=== PATIENT | male | born 1940 | race Caucasian/White ===

== ENCOUNTER 2018-08-29 10:05 | Emergency (ER) | payer OTHER ==
--- NOTE | 2018-08-29 10:35 | EDPHY ---
H & P Stated Complaint: uncontrolled shaking while holding coffee. Concerned it is heart Time Seen by Provider: 08/29/18 10:35 - Personal History Current Tetanus Diphtheria and Acellular Pertussis (TDAP): Yes Tetanus Vaccine Date: 2010 - Medical/Surgical History Hx Asthma: No Hx Chronic Respiratory Disease: No Hx Diabetes: Yes Hx Cardiac Disease: Yes Hx Renal Disease: No Hx Cirrhosis: No Hx Alcoholism: No Hx HIV/AIDS: No Hx Splenectomy or Spleen Trauma: No Other PMH: cardiac stents/htn - Social History Smoking Status: Former smoker Constitutional: Initial Vital Signs Temperature (C) 36.6 C 08/29/18 10:06 Heart Rate 95 08/29/18 10:06 Respiratory Rate 18 08/29/18 10:06 Blood Pressure 154/92 H 08/29/18 10:06 O2 Sat (%) 92 08/29/18 10:06 O2 Delivery Mode Room Air Allergies/Adverse Reactions: No Known Allergies Allergy (Verified 08/29/18 10:10) Home Medications: Medication Instructions Recorded FLUoxetine [Prozac 20 MG (*)] 20 mg PO DAILY 09/30/10 amLODIPine BESYLATE [Norvasc 10 mg 10 mg PO DAILY 09/30/10 (*)] Aspirin EC [Aspirin EC 81 mg (*)] 81 mg PO DAILY 05/07/15 Glimepiride [Amaryl 2 MG (*)] 2 mg PO DAILY@18 05/07/15 Losartan Potassium [Cozaar 50 mg 50 mg PO DAILY 05/07/15 (*)] Nitroglycerin [Nitrostat 0.4 mg 0.4 mg SL PRN PRN 05/07/15 (*)] Vitamin B Complex [B Complex] 1 each PO DAILY 05/07/15 metFORMIN HCL [Metformin HCl ER] 1,000 mg PO BIDMEAL 05/07/15 Atorvastatin Calcium [Lipitor 40 80 mg PO DAILY #30 tab 05/08/15 mg (*)] Medical Decision Making - Diagnostics Imaging Results: Imaging Impressions Chest X-Ray 08/29/18 10:55 Impression: No evidence of pneumonia or overt heart failure/fluid overload. Imaging: I viewed and interpreted images myself ED Course/Re-evaluation: CHIEF COMPLAINT: Shaking, shoulder blade pain HISTORY OF PRESENT ILLNESS: The patient is an anticoagulated (Plavix and baby Aspirin) 78 y/o male with a history of cardiac stents x 9 and hypertension complaining of uncontrollable shaking this morning. While at [employer] he was returning to his table after getting coffee when he had full body shaking. After he had the episode of shaking he developed a pain under his shoulder blade. This pain is similar to symptoms he had prior to having stents placed. He reports that the has had stents placed "every 3 years". He typically does not feel shaky prior to needing the stents. The shakiness has increased over the last 2 years. No fever , headache, chest pain, shortness of breath, abdominal pain, urinary or bowel complaints, numbness. REVIEW OF SYSTEMS: A comprehensive 10 system review of systems is otherwise negative aside from elements mentioned in the history of present illness and medical decision making. PHYSICAL EXAM: HR, BP, O2 Sat, RR. Temp noted General Appearance: Alert, well hydrated, appropriate, and non-toxic appearing. Head: Atraumatic without scalp tenderness or obvious injury Eyes: Pupils equal, round, reactive to light and accommodation, EOMI, no trauma , no injection. Ears: Clear bilaterally, no perforation, normal landmarks Nose: Atraumatic, no rhinorrhea, clear. Throat: There is no erythema or exudates, no lesions, normal tonsils, mucus membranes moist. Neck: Supple, 2+ carotid upstroke, nontender, no lymphadenopathy. Respiratory: No retractions, no distress, no wheezes, and no accessory muscle use. Lungs are clear to auscultation bilaterally. Cardiovascular: Regular rate and rhythm, no murmurs, rubs, or gallops. Bilateral carotid, radial, dorsalis pedis, and posterior tibial pulses intact. Good capillary refill all extremities. Gastrointestinal: Abdomen is soft, nontender, non-distended, no masses, no rebound, no guarding, no peritoneal signs. Musculoskeletal: Normal active ROM of all extremities, atraumatic. Neurological: Alert, appropriate, and interactive. The patient has normal DTRs and non-focal cranial nerves, motor, sensory, and cerebellar exam. Skin: No rashes, good turgor, no nodules on palpation. Past medical history: Hypertension Past surgical history: Cardiac stents x 9 Family history: Denies Social history: Friend at bedside, lives in [place], retired DIAGNOSTICS/PROCEDURES/CRITICAL CARE TIME: EKG: The 12 lead EKG was interpreted by myself as sinus rhythm with a rate of 88 , no ischemia, normal intervals. See hard copy and/or "tracemaster" electronic copy for interpretation. Chest x-ray: No evidence of pneumonia or overt heart failure/fluid overload. DIFFERENTIAL DIAGNOSIS: The differential diagnosis for the patient's neurologic symptoms included but was not limited to peripheral causes, central causes including CVA, TIA, electrolyte abnormalities and dehydration, cardiogenic causes, atypical causes like migraine syndrome. MEDICAL DECISION MAKING: The patient is an anticoagulated (Plavix and baby Aspirin) 78 y/o male with a history of cardiac stents x 9 and hypertension complaining of uncontrollable shaking this morning followed by a pain under his shoulder. He has a normal physical exam. Labs, EKG, and chest x-ray ordered. 1017: I reviewed patient's EKG as sinus rhythm with a rate of 88, no ischemia, normal intervals. 1052: Patients's troponin is normal; additional lab and imaging studies still pending. 1143: I reviewed patient's chest x-ray which does not reveal any acute findings. 1146: Reassessed patient and discussed laboratory and imaging findings. I have offered him admission for further observation and evaluation. He is politely declining the admission offer and would like to follow up with his regional driver , Dr. Liu, as an outpatient. Return precautions provided; patient is comfortable with this plan. - Data Points Laboratory Results: 08/29/18 08/29/18 10:49 10:27 POC Hgb 16.0 gm/dL gm/dL (13.7-17.5) POC Hct 47 % % (40-51) POC Sodium 141 mEq/L mEq/L (135-145) POC Potassium 4.3 mEq/L mEq/L (3.3-5.0) POC Chloride 102 mEq/L mEq/L (97-110) POC Total CO2 24 mEq/L mEq/L (22-31) POC BUN 20 mg/dL mg/dL (7-23) POC Creatinine 1.1 mg/dL mg/dL (0.7-1.3) POC Glucose 173 mg/dL H mg/dL (70-100) POC Troponin I 0.00 ng/mL ng/mL (0.00-0.08) Point of Care Test Results: Chemistry 08/29/18 08/29/18 10:49 10:27 POC Sodium 141 mEq/L mEq/L (135-145) POC Potassium 4.3 mEq/L mEq/L (3.3-5.0) POC Chloride 102 mEq/L mEq/L (97-110) POC Total CO2 24 mEq/L mEq/L (22-31) POC BUN 20 mg/dL mg/dL (7-23) POC Creatinine 1.1 mg/dL mg/dL (0.7-1.3) POC Glucose 173 mg/dL H mg/dL (70-100) POC Troponin I 0.00 ng/mL ng/mL (0.00-0.08) ISTAT H&H 08/29/18 10:49 POC Hgb 16.0 gm/dL gm/dL (13.7-17.5) POC Hct 47 % % (40-51) Departure - Departure Disposition: Home, Routine, Self-Care Clinical Impression: Shaking Shoulder pain Qualifiers: Chronicity: acute Laterality: unspecified laterality Qualified Code(s): M25.519 - Pain in unspecified shoulder Condition: Good Instructions: Tremors (ED), Shoulder Pain (ED) Additional Instructions: 1. Follow-up with your primary doctor within 72 hours. 2. Return to the Emergency Department for fever, chest pain, shortness of breath , increasing pain or other worsening of condition. 3. Follow up with a regional driver for further testing, as soon as possible, within one week. We would be happy to reevaluate you and observe you in the hospital at any time. Referrals: Jitendra Ortiz MD [Primary Care Provider] - As per Instructions Satinder Liu MD [Medical Doctor] - As per Instructions Report Scribed for: Nolberto Calderon Report Scribed by: Kaley Harris Date of Report: 08/29/18 Time of Report: 10:55
[2018-08-29 11:11] VITALS: BP 131/83
--- NOTE | 2018-08-29 14:50 | CPEKG ---
Test Reason : OPEN Blood Pressure : / mmHG Vent. Rate : 088 BPM Atrial Rate : 088 BPM P-R Int : 176 ms QRS Dur : 095 ms QT Int : 350 ms P-R-T Axes : 060 -17 050 degrees QTc Int : 424 ms Sinus rhythm Borderline left axis deviation Confirmed by Nolberto Calderon ([id number]) on 08/29/2018 2:49:29 PM Referred By: PHYSICIAN ED Confirmed By:Nolberto Calderon
== END 2018-08-29 12:06 | disposition home or self-care (01) ==
DX: R25.1 Tremor, unspecified (principal); M25.519 Pain in unspecified shoulder; I10 Essential (primary) hypertension; Z95.5 Presence of coronary angioplasty implant and graft; Z79.01 Long term (current) use of anticoagulants; Z87.891 Personal history of nicotine dependence
CPT/HCPCS: 82435-PO; 82565-PO; 82947-PO; 84132-PO; 84295-PO; 84484-ER; 84520-PO; 85014-ER